=== PATIENT | male | born 1975 | race Caucasian/White ===

== ENCOUNTER 2020-09-19 15:13 | Emergency (ER) | payer OTHER, SELFPAY ==
--- NOTE | ~2020-09-19 | US_ITS ---
EXAMINATION: US ABDOMEN LIMITED CLINICAL INFORMATION: Elevated liver function test with diarrhea. COMPARISON: 07/03/2011 CT scan and 03/30/2011 CT scan TECHNIQUE: Real-time imaging of the right upper quadrant abdominal viscera. FINDINGS: PANCREAS: Normal. LIVER: The liver is normal in size. The liver contour is normal. Parenchymal echogenicity is normal. There is a well-demarcated 0.9 cm echogenic lesion in the midline left lobe the liver statistically likely representing an incidental hemangioma. There is no intrahepatic biliary duct dilatation seen. GALLBLADDER: Normal. The gallbladder is physiologically distended without evidence of stones, sludge, polyps, wall thickening or pericholecystic fluid. COMMON BILE DUCT: Normal in caliber measuring 0.2 cm in diameter. RIGHT KIDNEY: 1.1 cm slightly complex septated cyst in the lateral midpole. There is an echogenic but nonshadowing possible calcification in the right midpole of the kidney measuring up to 0.8 cm in size. No hydronephrosis. The kidney measures 11.0 cm in maximum dimension. FREE FLUID: None. US/US abdomen limited IMPRESSION: No acute process seen. 0.9 cm echogenic well demarcated probable subcentimeter hemangioma in the left lobe the liver not readily seen on the older prior noncontrast CT scans. Thin septated cyst in the midpole right kidney likely representing a Bosniak 2 cyst. Subcentimeter echogenic nodularity region in the midpole of the right kidney may represent a calcification although I would expect there to be more shadowing for a calcification this size
--- NOTE | ~2020-09-19 | CT_ITS ---
EXAMINATION: CT ABDOMEN AND PELVIS WITHOUT CONTRAST CLINICAL INFORMATION: Reason for Exam bloody diarrhea x 13d . COMPARISON: No pertinent prior studies are available for comparison. TECHNIQUE: Multidetector volumetric imaging was performed from the superior aspect of the liver through the pubic symphysis without contrast per renal stone protocol. Sagittal and coronal reformatted images were obtained on the technologist workstation. This CT examination was performed using dose optimization techniques as appropriate, variously including the following: *Automated exposure control *Adjustment of mA and/or kV according to patient size (this includes techniques or standardized protocols for targeted exams where dose is matched to indication/reason for exam; i.e. extremities or head) *Use of iterative reconstruction technique DLP: 590 mGy-cm. FINDINGS: LUNG BASES: Patchy groundglass areas of airspace disease bilaterally suggesting underlying viral or atypical infectious etiology such as COVID LIVER, GALLBLADDER, BILIARY TREE: The non-contrast liver is normal in size, shape, and attenuation. No focal hepatic lesion or biliary ductal dilatation is present. The gallbladder is unremarkable with no evidence of radiopaque gallstones, gallbladder wall thickening, or obvious pericholecystic inflammatory changes. PANCREAS: Unremarkable. SPLEEN: Unremarkable. ADRENAL GLANDS: Unremarkable. KIDNEYS AND URETERS: The kidneys are normal in size, shape, and attenuation. No hydronephrosis, hydroureter, or calculi seen. No perinephric stranding. BLADDER: Unremarkable. GASTROINTESTINAL TRACT: The small and large bowel are unremarkable. The appendix is unremarkable. ABDOMINAL WALL: No significant hernia is appreciated. LYMPHOVASCULAR STRUCTURES: No lymphadenopathy. The aorta is unremarkable.. PELVIC VISCERA: Unremarkable. OSSEUS STRUCTURES: Unremarkable. CT/CT abdomen pelvis wo con IMPRESSION: Main finding of note is seen in the visualized lung bases with patchy bilateral groundglass airspace disease with a peripheral predominance. A viral or atypical infectious etiology such as COVID would be favored with this distribution. Clinical correlation recommended. This critical result was discussed with CORNELIA Sahni at 09/19/2020 11:02 PM and it was ascertained that the content and urgency of the report was understood at the time of direct communication.
[2020-09-19 15:16] VITALS: BP 142/94; PULSE 101; RESP 18; TEMP 36.6; O2SAT 96; BMI 27.6
[2020-09-19 18:44] VITALS: BP 130/88; PULSE 78; RESP 16; O2SAT 99
[2020-09-19 19:09] LABS: Eosinophils Percent Auto 0.5 % (0-4); Hematocrit 43.8 % (42-52); Hemoglobin 14.8 g/dl (14.0-18.0); Imm Gran Abs Auto 0.01 X10*3/uL (0.00-0.03); Imm Gran Pct Auto 0.2 % (0.0-0.4); Lymphocytes Absolute Auto 1.8 X10*3/uL (1.2-4.9); MANUAL DIFF FLAG SCAN; Mean Corpuscular HGB Conc 33.8 g/dl (31.0-36.0); Mean Corpuscular Hemoglobin 29.9 pg (27.0-33.0); Mean Corpuscular Volume 88.5 fL (80-98); Mean Platelet Volume 10.1 fL (9.4-12.4); Monocytes Absolute Auto 0.4 X10*3/uL (0.1-1.2); Neutrophils Percent Auto 46.3 % (45-73); Platelet Count 262 X10*3/uL (160-400); Red Blood Count 4.95 X10*6/uL (4.60-5.80); Red Cell Distribution Width 12.5 % (11.0-16.0); SCAN SMEAR FLAG 1; White Blood Count 4.2 X10*3/uL (4.8-10.8)
[2020-09-19 19:28] LABS: SLIDE REVIEW VERIFIED
[2020-09-19 19:50] LABS: Alanine Aminotransferase 79 U/L (0-40); Albumin Level 4.4 g/dL (3.5-5.0); Alkaline Phosphatase 72 U/L (39-117); Anion Gap 13 (12-20); Aspartate Amino Transferase 154 U/L (5-37); Bilirubin Total 1.3 mg/dL (0.0-1.0); Blood Urea Nitrogen 19 mg/dL (9-16); Calcium 9.2 mg/dL (8.4-10.2); Carbon Dioxide 24 mmol/L (22-29); Chloride 109 mmol/L (96-108); Creatinine Clr Calc Pharmacy 88.9; Estimated Glomerular Filt Rate > 60; Glucose Random 85 mg/dL (60-115); Potassium 4.1 mmol/L (3.3-5.1); Sodium 142 mmol/L (135-145); Total Protein 7.3 g/dL (6.5-8.0)
--- NOTE | 2020-09-19 19:57 | ED_ITS ---
HPI - Abdominal Pain General Chief Complaint: Abdominal Pain Stated Complaint: diarrhea Time Seen by Provider: 09/19/20 19:40 Source: patient and family () Mode of arrival: ambulatory Limitations: no limitations History of Present Illness HPI narrative: Patient is a 44-year-old male with no significant past medical history who presents is 13 days of abdominal pain and cramping and bloating and diarrhea after eating or drinking. Patient states his diarrhea has large amounts of bright red blood in it but he does have a history of hemorrhoids which bleed. Patient states that all started when he ate a steak, after for bites he realized it was not good so he threw it away. Patient states he stayed in bed all that weekend and did need anything. He has been trying to eat a little bit here and there but every time he eats he has diarrhea. He also states he has associated back pain, low back pain which gets better when he stands up. He states he did take 1 Percocet and his back pain was relieved for 6 hours. He also admits to dizziness and nausea. He denies fevers, vomiting or sick contacts. Patient states he has had an upper endoscopy and colonoscopy approximately 8 years ago and everything was normal. Related Data Allergies Allergy/AdvReac Type Severity Reaction Status Date / Time No Known Allergies Allergy Verified 09/19/20 15:22 Review of Systems Review of Systems Yes all other systems are reviewed and are negative Physical Exam Vital Signs: Vital Signs: Last Vital Signs Temp 98 F 09/19/20 15:16 Pulse 84 09/20/20 00:00 Resp 18 09/20/20 00:00 BP 130/88 09/19/20 18:44 Pulse Ox 100 09/20/20 00:00 Body Mass Index 27.6 Const: General: cooperative, healthy appearing, comfortable, no acute distress and well developed Orientation/consciousness: patient oriented x3 Limitations: no limitations HENMT: Head: Yes normal to inspection Eyes: General: appearance normal, both eyes and all related structures Neck: Neck: Yes normal visual inspection and Yes full ROM Resp: Effort & Inspection: normal respiratory effort and able to speak in complete sentences Auscultation: clear to auscultation bilaterally Cardio: Rate: regular rate Rhythm: regular rhythm Heart sounds: normal S1 and S2 GI: Inspection: Yes normal to inspection Palpation (GI): Soft to palpation and Tenderness to palpation present (GI) Hyman's sign positive Auscultation: normal bowel sounds Skin: General skin exam: no rashes or lesions noted Neuro: General: patient oriented x3 Extrem: General: Yes normal to inspection Course Course Course Narrative: Patient is a 44-year-old male with no significant past medical history who presents is 13 days of abdominal pain and cramping and bloating and brb diarrhea after eating or drinking. Will get labs, UA, EKG, stool guiac, abd US and reassess. Patient's vital signs are significant for hypertension at 142/94, tachycardia at 01:01, respirations at 18, O2 sat 96% on room air and a temp of 98 degrees F. Reevaluation(s) Reevaluation #1: Stool guaiac positive for blood. CBC shows stable hemoglobin at 14.8 and hematocrit at 43.8, patient does have low white blood cell count of 4.2, chemistry panel significant for elevated bilirubin 1.3, AST 150 for an ALT 79. VSS now. KEG NSR at 81BPM, no acute changes. Time: 20:41 MDM - Abdominal Pain Lab Data Attestation: I reviewed the patient's lab results. Result diagrams: 09/19/20 18:54 09/19/20 18:54 Labs: Lab Results 09/19/20 09/19/20 09/19/20 Range/Units 18:54 18:54 18:54 WBC 4.2 L (4.8-10.8) X10*3/uL RBC 4.95 (4.60-5.80) X10*6/uL Hgb 14.8 (14.0-18.0) g/dl Hct 43.8 (42-52) % MCV 88.5 (80-98) fL MCH 29.9 (27.0-33.0) pg MCHC 33.8 (31.0-36.0) g/dl RDW 12.5 (11.0-16.0) % Plt Count 262 (160-400) X10*3/uL MPV 10.1 (9.4-12.4) fL Immature Gran % (Auto) 0.2 (0.0-0.4) % Neut % (Auto) 46.3 (45-73) % Lymph % (Auto) 43.0 H (20-40) % [place] % (Auto) 10.0 (2-11) % Eos % (Auto) 0.5 (0-4) % Baso % (Auto) 0.0 (0-2) % Lymph # (Auto) 1.8 (1.2-4.9) X10*3/uL [place] # (Auto) 0.4 (0.1-1.2) X10*3/uL Eos # (Auto) 0.0 (0.0-0.4) X10*3/uL Baso # (Auto) 0.0 (0.0-0.2) X10*3/uL Abs Immat Gran (auto) 0.01 (0.00-0.03) X10*3/uL Absolute Neuts (auto) 2.0 (2.0-8.3) X10*3/uL Absolute Nucleated RBC 0.000 (0.0-0.012) X10*3/uL Nucleated RBC % (auto) 0.0 (0.0-0.2) /100WBC Smear Tech's Comments VERIFIED Hold Blue Top SEE NOTE Sodium 142 (135-145) mmol/L Potassium 4.1 (3.3-5.1) mmol/L Chloride 109 H (96-108) mmol/L Carbon Dioxide 24 (22-29) mmol/L Anion Gap 13 (12-20) BUN 19 H (9-16) mg/dL Creatinine 1.14 (0.5-1.4) mg/dL Estim Creat Clear Calc 88.9 Estimated GFR > 60 Random Glucose 85 (60-115) mg/dL Calcium 9.2 (8.4-10.2) mg/dL Total Bilirubin 1.3 H (0.0-1.0) mg/dL AST 154 H (5-37) U/L ALT 79 H (0-40) U/L Alkaline Phosphatase 72 (39-117) U/L Troponin I High Sens (<3.5-35.0) ng/L Total Protein 7.3 (6.5-8.0) g/dL Albumin 4.4 (3.5-5.0) g/dL Lipase (8-78) U/L Stool Occult Blood (NEGATIVE) COVID-19 ([facility]) (Negative) COVID-19 Clin Com 09/19/20 09/19/2009/19/21 Range/Units 20:42 20:42 20:42 WBC (4.8-10.8) X10*3/uL RBC (4.60-5.80) X10*6/uL Hgb (14.0-18.0) g/dl Hct (42-52) % MCV (80-98) fL MCH (27.0-33.0) pg MCHC (31.0-36.0) g/dl RDW (11.0-16.0) % Plt Count (160-400) X10*3/uL MPV (9.4-12.4) fL Immature Gran % (Auto) (0.0-0.4) % Neut % (Auto) (45-73) % Lymph % (Auto) (20-40) % [place] % (Auto) (2-11) % Eos % (Auto) (0-4) % Baso % (Auto) (0-2) % Lymph # (Auto) (1.2-4.9) X10*3/uL [place] # (Auto) (0.1-1.2) X10*3/uL Eos # (Auto) (0.0-0.4) X10*3/uL Baso # (Auto) (0.0-0.2) X10*3/uL Abs Immat Gran (auto) (0.00-0.03) X10*3/uL Absolute Neuts (auto) (2.0-8.3) X10*3/uL Absolute Nucleated RBC (0.0-0.012) X10*3/uL Nucleated RBC % (auto) (0.0-0.2) /100WBC Smear Tech's Comments Hold Blue Top Sodium (135-145) mmol/L Potassium (3.3-5.1) mmol/L Chloride (96-108) mmol/L Carbon Dioxide (22-29) mmol/L Anion Gap (12-20) BUN (9-16) mg/dL Creatinine (0.5-1.4) mg/dL Estim Creat Clear Calc Estimated GFR Random Glucose (60-115) mg/dL Calcium (8.4-10.2) mg/dL Total Bilirubin (0.0-1.0) mg/dL AST (5-37) U/L ALT (0-40) U/L Alkaline Phosphatase (39-117) U/L Troponin I High Sens 7.1 (<3.5-35.0) ng/L Total Protein (6.5-8.0) g/dL Albumin (3.5-5.0) g/dL Lipase 54 (8-78) U/L Stool Occult Blood (NEGATIVE) COVID-19 ([facility]) Negative (Negative) COVID-19 Clin Com See Note 09/19/20 Range/Units 20:42 WBC (4.8-10.8) X10*3/uL RBC (4.60-5.80) X10*6/uL Hgb (14.0-18.0) g/dl Hct (42-52) % MCV (80-98) fL MCH (27.0-33.0) pg MCHC (31.0-36.0) g/dl RDW (11.0-16.0) % Plt Count (160-400) X10*3/uL MPV (9.4-12.4) fL Immature Gran % (Auto) (0.0-0.4) % Neut % (Auto) (45-73) % Lymph % (Auto) (20-40) % [place] % (Auto) (2-11) % Eos % (Auto) (0-4) % Baso % (Auto) (0-2) % Lymph # (Auto) (1.2-4.9) X10*3/uL [place] # (Auto) (0.1-1.2) X10*3/uL Eos # (Auto) (0.0-0.4) X10*3/uL Baso # (Auto) (0.0-0.2) X10*3/uL Abs Immat Gran (auto) (0.00-0.03) X10*3/uL Absolute Neuts (auto) (2.0-8.3) X10*3/uL Absolute Nucleated RBC (0.0-0.012) X10*3/uL Nucleated RBC % (auto) (0.0-0.2) /100WBC Smear Tech's Comments Hold Blue Top Sodium (135-145) mmol/L Potassium (3.3-5.1) mmol/L Chloride (96-108) mmol/L Carbon Dioxide (22-29) mmol/L Anion Gap (12-20) BUN (9-16) mg/dL Creatinine (0.5-1.4) mg/dL Estim Creat Clear Calc Estimated GFR Random Glucose (60-115) mg/dL Calcium (8.4-10.2) mg/dL Total Bilirubin (0.0-1.0) mg/dL AST (5-37) U/L ALT (0-40) U/L Alkaline Phosphatase (39-117) U/L Troponin I High Sens (<3.5-35.0) ng/L Total Protein (6.5-8.0) g/dL Albumin (3.5-5.0) g/dL Lipase (8-78) U/L Stool Occult Blood POSITIVE (NEGATIVE) COVID-19 ([facility]) (Negative) COVID-19 Clin Com Imaging Data US - abdomen: Attestation: I personally reviewed and interpreted this imaging study as follows: My impression: No acute pathology Radiologist's impression: [address] [id number] ReportSigned Patient: Esvin Quinn [facility]#: [id number]: 1975Acct:[id number]/Sex: 44 / MADM Date: 09/19/20Loc: [address] Dr: Ordering Physician: Nusrat Brito PA-C Date of Service: 09/19/20 Procedure(s): US abdomen limited Accession Number(s): [id number] cc: Nusrat Brito PA-C~ EXAMINATION: US ABDOMEN LIMITED CLINICAL INFORMATION: Elevated liver function test with diarrhea. COMPARISON: 07/03/2011 CT scan and 03/30/2011 CT scan TECHNIQUE: Real-time imaging of the right upper quadrant abdominal viscera. FINDINGS: PANCREAS: Normal. LIVER: The liver is normal in size. The liver contour is normal. Parenchymal echogenicity is normal. There is a well-demarcated 0.9 cm echogenic lesion in the midline left lobe the liver statistically likely representing an incidental hemangioma. There is no intrahepatic biliary duct dilatation seen. GALLBLADDER: Normal. The gallbladder is physiologically distended without evidence of stones, sludge, polyps, wall thickening or pericholecystic fluid. COMMON BILE DUCT: Normal in caliber measuring 0.2 cm in diameter. RIGHT KIDNEY: 1.1 cm slightly complex septated cyst in the lateral midpole. There is an echogenic but nonshadowing possible calcification in the right midpole of the kidney measuring up to 0.8 cm in size. No hydronephrosis. The kidney measures 11.0 cm in maximum dimension. FREE FLUID: None. US/US abdomen limited IMPRESSION: No acute process seen. 0.9 cm echogenic well demarcated probable subcentimeter hemangioma in the left lobe the liver not readily seen on the older prior noncontrast CT scans. Thin septated cyst in the midpole right kidney likely representing a Bosniak 2 cyst. Subcentimeter echogenic nodularity region in the midpole of the right kidney may represent a calcification although I would expect there to be more shadowing for a calcification this size Dictated By:SETH AMADOR MDSigned By:<Electronically signed by SETH AMADOR MD in OV>09/19/202048 DD/ 55TD/TT: Power Electronics Research Engineer: JAMIE ECG Data Attestation: I personally reviewed and interpreted this ECG as follows: ECG interpretation date: 09/19/20 ECG interpretation time: 20:46 Interpretation: No acute changes, NSR at 81 BPM Discharge Plan Discharge Clinical Impression: Diarrhea due to COVID-19 Patient Disposition: Home, Self-Care Instructions: COVID-19 (Coronavirus Disease 2019) (ED) Additional Instructions: As discussed, please be sure to stay well hydrated, alternating an electrolyte drink with water. Also, please be sure to follow-up with your primary care doctor to ensure that your liver enzymes return to a normal level. Please adhere to the COVID 19 quarantine guidelines until you know you have a negative PCR test. It is likely you were positive last week but as the rapid test is less reliable, we did a PCR test to assess current contagiousness. If the test is negative, you do not need to quarantine. If you develop a fever you cannot control ibuprofen or acetaminophen, if you have chest pain, diarrhea which has copious amounts of blood or black, please return to the emergency department or call 911. Also, you did have incidental findings of a cyst, likely calcification in your kidney and a hemangioma in the left lobe of your liver. You should follow up with your PCP on these incidental findings. Referrals: Robin Gustafson MD [Primary Care Provider] - 10 days (follow up labs, liver panel. ) Interventions: ED Discharge Assessment Last Done: 09/20/20 00:06 Discharge Date/Time: 09/20/20 00:52 [facility] Social History Social History Advance Directives: No Advance Directives Information Provided: Yes
--- NOTE | 2020-09-19 20:09 | ECG_ITS ---
Test Reason : ABD PAIN Blood Pressure : / mmHG Vent. Rate : 081 BPM Atrial Rate : 081 BPM P-R Int : 174 ms QRS Dur : 092 ms QT Int : 386 ms P-R-T Axes : 041 036 030 degrees QTc Int : 448 ms Normal sinus rhythm Normal ECG No previous ECGs available Referred By: Nusrat Brito Electronically Signed By:MAGDA QUILES MD
--- NOTE | 2020-09-19 20:15 | PC.NURSE ---
2000: pt to us at this time
[2020-09-19 20:57] LABS: OBS Int Ctl Valid YES; OBS1 POSITIVE (NEGATIVE)
[2020-09-19 21:08] LABS: COVID-19 Test Negative (Negative)
[2020-09-19 21:25] LABS: Lipase 54 U/L (8-78)
[2020-09-19 21:31] LABS: Troponin-I High Sensitivity 7.1 ng/L (<3.5-35.0)
[2020-09-19] MEDS: Lactated Ringers 1,000 ML 999 ML IV (23:25)
[2020-09-20] VITALS: PULSE 84; RESP 18; O2SAT 100
== END 2020-09-20 00:52 | disposition home or self-care (01) ==
PROVIDERS: Physician Assistant; Emergency Provider Emergency Medicine; PCP Internal Medicine
DX: U07.1 COVID-19 (principal); A08.39 Other viral enteritis; R10.11 Right upper quadrant pain; R79.89 Other specified abnormal findings of blood chemistry; Z20.822 Contact with and (suspected) exposure to COVID-19
CPT/HCPCS: 36415; 74176; 76705; 80053; 82272; 83690; 84484; 85025; 87635; 93005; 99284